=== PATIENT | male | born 1985 | race African-American/Black ===

== ENCOUNTER 2019-05-04 08:02 | Emergency (ER) | payer OTHER ==
[~2019-05-04] VITALS: Ht 193 cm; Wt 116.0 kg
[2019-05-04 12:03] VITALS: BP 141/75
== END 2019-05-04 11:45 | disposition home or self-care (01) ==
LOC: ER 08:02
DX: H92.01 Otalgia, right ear (principal); F12.10 Cannabis abuse, uncomplicated; Z88.0 Allergy status to penicillin
CPT/HCPCS: 99281

== ENCOUNTER 2019-06-05 10:15 | Emergency (ER) | payer OTHER ==
[~2019-06-05] VITALS: Ht 193 cm; Wt 116.0 kg
[2019-06-05 10:25] VITALS: BP 136/63
[2019-06-05] MEDS ORDERED: IBUPROFEN 800MG TABLET PO ONE (13:00)
== END 2019-06-05 13:30 | disposition home or self-care (01) ==
LOC: ER 10:15
DX: S69.82XA Other specified injuries of left wrist, hand and finger(s), initial encounter (principal); Z88.0 Allergy status to penicillin; Z91.018 Allergy to other foods; W01.0XXA Fall on same level from slipping, tripping and stumbling without subsequent striking against object, initial encounter; Y93.89 Activity, other specified; Y92.018 Other place in single-family (private) house as the place of occurrence of the external cause
CPT/HCPCS: 29130; 73130; 99283

== ENCOUNTER 2021-08-05 18:19 | Emergency (ER) | payer MEDICARE, OTHER ==
[~2021-08-05] VITALS: Ht 190.5 cm; Wt 100.0 kg
[2021-08-05 18:25] VITALS: BP 161/92
== END 2021-08-05 21:04 | disposition left against medical advice (07) ==
LOC: ER 18:19
DX: Z53.21 Procedure and treatment not carried out due to patient leaving prior to being seen by health care provider (principal); I49.9 Cardiac arrhythmia, unspecified
CPT/HCPCS: 93005